=== PATIENT | female | born 1980 | race Hispanic/Latino ===

== ENCOUNTER 2017-05-22 13:24 | Inpatient (IN) | payer OTHER ==
--- NOTE | 2017-05-22 15:22 | Ultrasound Report ---
BIOPHYSICAL PROFILE: INDICATION: well being. COMPARISON: None similar. TECHNIQUE: Transabdominal ultrasound with Doppler interrogation. 2 - breathing movements 2 - movements 2 - posture and tone 0 - Qualitative amniotic fluid volume 6 - TOTAL SCORE OF POSSIBLE 8 Heart Rate (bpm) 161
--- NOTE | 2017-05-22 15:24 | Ultrasound Report ---
OB LIMITED INDICATION: well being. COMPARISON: None similar. TECHNIQUE: Transabdominal grayscale ultrasound with Doppler interrogation. Gestation: Smith Position: Breech Amniotic Fluid: Decreased (< 7 cm) AZUCENA = 2.9 cm Heart Rate: 161 BPM
[2017-05-22] MEDS: LACTATED RINGERS 1,000 ML IV SCH ×2 (16:00→16:50)
[2017-05-22] MEDS ORDERED: REGLAN IV SCH (16:08)
[2017-05-22] MEDS ORDERED: PEPCID IV SCH (16:08)
--- NOTE | 2017-05-22 16:09 | Anesthesia Consultation ---
Anesthesia Consult and Med Hx Date of service: 05/22/17 - Airway Anesthetic Teeth Evaluation: Good ROM Head & Neck: Adequate Mental/Hyoid Distance: Adequate Mallampati Class: Class I Intubation Access Assessment: Good - Pulmonary Exam CTA: Yes - Cardiac Exam Cardiac Exam: RRR - Pre-Operative Health Status ASA Pre-Surgery Classification: ASA2 Proposed Anesthetic Plan: Spinal - Pulmonary Hx Smoking: Yes (1/2 ppd x 15 years) - Cardiovascular System Hx Hypertension: No - Endocrine Hx Renal Disease: No - Additional Comments Anesthesia Medical History Comments: No previous anesthesia complications.
--- NOTE | 2017-05-22 16:09 | Anesthesia Day of Surgery ---
Anesthesia Day of Surgery - Day of Surgery Patient Examined: Yes Patient H&P Reviewed: Yes Patient is NPO: Yes
[2017-05-22 16:31] LABS: Basophils % (Auto) 0.3 % (0.0-1.8); Eosinophils % (Auto) 0.8 % (0.0-4.3); Hematocrit 40.2 % (30.3-42.9); Hemoglobin 13.7 gm/dl (10.1-14.3); Mean Corpuscular HGB Conc 34 % (30-34); Mean Corpuscular Hemoglobin 32 pg (28-32); Mean Corpuscular Volume 93 fl (79-97); Platelet Count 172 K/mm3 (140-440); Red Blood Count 4.32 M/mm3 (3.65-5.03); Red Cell Distribution Width 12.8 % (13.2-15.2)
--- NOTE | 2017-05-22 16:35 | History and Physical Report ---
History of Present Illness Date of examination: 05/22/17 (pt presents from office with nonreassuring tracing and breech) Date of admission: 05/22/17 13:25 History of present illness: EDC Confirmation: 05/15/2017 Gestational Age: 8 1/7 weeks Past History : 5 Term Births: 2 Living Children: 2 Para: 2 Elect. Ab: 1 Spont. Ab: 2 # 1 Delivery date: 1999 Weeks Gestation: 38 Delivery type: vac Anesthesia type: epidural [place] [facility] [place]: Male weight: 7-7 Comments: PPH- no transfusion # 2 Delivery date: 2006 Weeks Gestation: 39 Delivery type: Anesthesia type: epidural [place] [facility] [place] Sex: Female weight: 7-6 Comments: no complications # 3 Delivery date: 2003 Weeks Gestation: 6 Delivery type: SAB Comments: d&c # 4 Delivery date: 2015 Weeks Gestation: 7 Delivery type: SAB Comments: D&C PPH-s/p 3 units of blood Past Medical History: Anxiety Depression Past Surgical History: D&C: x2 Tonsillectomy Past Medical History Surgery (Non-obgyn specialist): D&C: x2 Tonsillectomy Abnormal PAP: positive JORDY Exposure: negative Infertility: negative Uterine Anomaly: negative Uterine Surgery (not C/S): negative Other Gynecologic Problems: negative Medical History Comments: anxiety and depression Family Hx: DM HTN CHF Social Hx: + tobacco: 1/2 ppd no etoh, no drugs single Infection History Hx of STD: HPV Partner hx. of genital herpes: no Rash, Viral, or Febrile illness since last LMP? no Varicella/Chicken Pox Status: Previous Disease Genetic History Congenital Heart Defect: Mom: no Dad: no Angela Disease: Mom: no Dad: no Thalassemia Mom: no Dad: no Neural Tube Defect Mom: no Dad: no Down's Syndrome Mom: no Dad: no Gavin-Sachs Mom: no Dad: no Sickle Cell Disease/Trait Mom: no Dad: no Hemophilia Mom: no Dad: no Muscular Dystrophy Mom: no Dad: no Cystic Fibrosis Mom: no Dad: no Wilfredo Chorea Mom: no Dad: no Mental Retardation Mom: no Dad: no Fragile X Mom: no Dad: no Other Genetic/Chromosomal Disorder Mom: no Dad: no Child w/other defect Mom: no Dad: no Enviromental Exposures Xray Exposure: no Medication, drug, or alcohol use since LMP: no Chemical/Other Exposure: no Exposure to Cat Liter: no Hx of Parvovirus (Fifth Disease): no Occupational Exposure to Children: none Active Medications: PLUS 27-1 MG TABS ( VIT-FE FUMARATE-FA) 1 po PROMETHAZINE HCL 25 MG TABS (PROMETHAZINE HCL) 1 tab po q6hrs prn Current Allergies: No known allergies Laboratory Results Routine Urinalysis Leukocytes: negative Nitrite: negative Urobilinogen: negative Protein: 1+ Blood: 1+ Ketone: moderate (40) Bilirubin: negative Glucose: negative Urine HCG: positive PHYSICAL EXAM HEENT: PERRLA, normal conjunctiva, external nose and nasal mucosa normal, oropharynx clear Neck/Thyroid: supple, thyroid normal Skin no significant abnormal lesions or rashes Chest: respiratory effort normal, clear to auscultation Breasts: normal without skin changes or masses CV: regular, normal S1-S2, no murmur, no rub, no gallop Abdomen: normal bowel sounds, soft, nontender, no HSM Musculoskeletal: grossly normal ROM in joints, no joint tenderness or muscle weakness Neuro: grossly normal DTRs, sensation, strength, cranial nerves Extremities: no clubbing, cyanosis, or 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 Vulva/Vagina: No lesions, normal BUS, normal rugae Cervix: No lesions; no cervical motion tenderness Uterus: normal size and position, midline, mobile Adnexae: no masses or tenderness Rectovaginal: no masses or tenderness Past History - Obstetrical History Expected Date of Delivery: 05/15/17 Actual Gestation: 41 Week(s) 0 Day(s) : 5 Para: 2 Hx # Term Pregnancies: 2 Spontaneous Abortions: 2 Number of Living Children: 2 Medications and Allergies Allergies Allergy/AdvReac Type Severity Reaction Status Date / Time No Known Allergies Allergy Verified 05/22/17 13:53 Home Medications Medication Instructions Recorded Confirmed Last Taken Type Ibuprofen [Motrin 600 MG tab] 800 mg PO Q8H PRN 02/04/14 05/22/17 02/04/14 18: 00 History Cyclobenzaprine [Flexeril 10 MG 10 mg PO TID PRN #15 tablet 06/07/14 05/22/17 Unknown Rx TAB] Phenazopyridine [Pyridium] 200 mg PO Q8HR #6 tablet 08/09/14 07/24/17 Unknown Rx Active Meds: Active Medications Citric Acid/Sodium Citrate (Bicitra) 30 ml PO ONCE ZULEIMA Stop: 05/23/17 16:59 Famotidine (Pepcid) 20 mg IV ONCE ZULEIMA Stop: 05/23/17 16:07 Cefazolin Sodium (Ancef/Sterile Water 2 Gm/20 Ml) 2 gm in 20 mls @ 80 mls/hr IV PREOP NR PRN Reason: Protocol Stop: 05/23/17 16:59 Lactated Ringer's (Lactated Ringers) 1,000 mls @ 2,250 mls/hr IV PREOP ZULEIMA Stop: 05/23/17 17:27 Oxytocin/Sodium Chloride (Pitocin/Ns 20 Unit/1000ml Drip) 20 units in 1,000 mls @ 0 mls/hr IV TITR ZULEIMA PRN Reason: As Directed Metoclopramide HCl (Reglan) 10 mg IV ONCE ZULEIMA Stop: 05/23/17 23:00 - Vital Signs Vital signs: Vital Signs Pulse Pulse Ox 275 H 82 L 05/22/17 13:30 05/22/17 13:30 Temp Pulse Resp BP Pulse Ox 79 118/73 98 05/22/17 16:25 05/22/17 15:08 05/22/17 16:25 - Physical Exam Breasts: Positive: deferred Cardiovascular: Regular rate, Normal S1, Normal S2 Lungs: Positive: Normal air movement Abdomen: Positive: normal appearance, soft, normal bowel sounds. Negative: distention, tenderness Genitourinary (Female): Positive: normal perenium Vulva: both: normal Vagina: Positive: normal moisture. Negative: discharge Cervix: Negative: lesion, discharge Uterus: Positive: normal size, normal contour Adnexa: both: normal Anus/Rectum: Positive: normal perianal skin. Negative: rectal mass, hemorrhoids Extremities: Positive: edema Deep Tendon Reflex Grade: Normal +2 - Obstetrical FHR: category 2 Uterine Contraction Monitor Mode: External Uterine Contraction Pattern: Irregular Uterine Contraction Intensity: Mild Results All other labs normal. Laboratory Data-Patient Name: JAZZ PERRIN Test Date Result Blood Type 11/03/2016 A Rh 11/03/2016 Positive Antibody Screen negative Rubella 11/03/2016 IMMUNE Serology (RPR) 04/14/2017 NR HBsAg 11/03/2016 Negative Hemoglobin 02/06/2017 12.2 Hematocrit 02/06/2017 38.0 Platelets 11/03/2016 212 X10E3/UL Chlamydia DNA 04/14/2017 Negative GC DNA/Culture 04/14/2017 Negative Urine Culture 11/03/2016 Final report Group B Strep cult Negative PAP HIV 04/14/2017 AFP/Quad Screen Glucola Test 3hr GTT (Fasting) 1 hr 2 hr 3 hr OPTIONAL LAB[facility]-Patient Name:JAZZ Osman HADDLE Test Date Result Varicella Ab Sickle Cell 11/03/2016 Negative PPD Fibronectin Cystic Fibrosis Parvovirus TSH Free T4 Hepatitis C ALT AST Uric Acid Creatinine 24 hr Urine Protein RONNIE Assessment and Plan Pt seen in office today for postdates testing Discovered breech presentation. NST in the office nonreassuring. Pt arrived to Triage went to US for evaluation. BPP 6/8, AZUCENA 2, Breech presentation. made aware C/S orders in EMR. Anticipate going to OR @ 1700 - Patient Problems (1) Non-reassuring status Current Visit: Yes Status: Acute (2) Oligohydramnios Current Visit: Yes Status: Acute Qualifiers: Fetus number: F Trimester: T (3) 41 weeks gestation of Current Visit: Yes Status: Acute (4) Breech presentation Current Visit: Yes Status: Acute Qualifiers: Fetus number: F
[2017-05-22] MEDS ORDERED: MORPHINE ONE (16:59)
[2017-05-22] MEDS ORDERED: PITOCin/NS 20 UNIT/1000ML DRIP 20 UNITS/1,000 ML BAG IV SCH ×2 (17:00→19:00)
[2017-05-22] MEDS ORDERED: ANCEF/STERILE WATER 2 GM/20 ML 2 GM/20 ML SYRINGE IV NR (17:00)
[2017-05-22] MEDS ORDERED: BICITRA PO SCH (17:00)
--- NOTE | 2017-05-22 17:10 | Event Note ---
Date: 05/22/17 Indications for section given patient was given opportunity ask questions she had none. Will move to section.
[2017-05-22] MEDS ORDERED: WATER FOR IRRIG STERILE IR ONE (17:23)
[2017-05-22] MEDS ORDERED: NACL 0.9% IR ONE (17:24)
[2017-05-22] MEDS ORDERED: ZOFRAN ONE (17:29)
[2017-05-22] MEDS ORDERED: LACTATED RINGERS 1,000 ML ONE (18:10)
--- NOTE | 2017-05-22 18:12 | Operative Report ---
Operative Report Operative Report: Date of procedure: 05/22/2017 Pre-operative diagnosis: Breech Presentation Post-operative diagnosis: Same Procedure name(s): Primary low transverse section Surgeon: Rex Modi MD Floral Decorator: Anesthesia: Spinal EBL: 600 mL Complications: None Findings: Normal uterus tubes and ovaries, female breech presentation, weight 5 lbs. 9 oz., Apgars 8 at 1 minute 9 at 5 minutes Specimen(s): None Procedure: The patient was brought to the operating room. A spinal was placed without any complications. She was then placed in left lateral tilt. Prepped and draped in the usual sterile manner. After testing for adequate anesthesia level, a Pfannenstiel incision was made. This incision was taken down to the fascia. The fascia was then nicked in the midline. This incision was extended out laterally with Muñoz scissors. The fascia was then sharply and bluntly from the underlying rectus muscles. The rectus muscles were bluntly and sharply . The peritoneum was then entered with the mobile lounge driver or operator's fingers. This incision was spread vertically with care not to damage the bladder below. Brandon retractor was then placed. The bladder flap was then formed sharply and bluntly with Metzenbaum scissors. A transverse incision was made in lower uterine segment. This incision was extended laterally with the operators fingers. The amniotic sac was then entered bluntly with the mobile lounge driver or operator' s fingers. The was delivered by delivered in the breech first flexing and extending the lower extremities followed by raising the breech then sweeping flexing and extending the upper extremities and after coming head was then delivered safely. The infant was bulb suctioned on the mother's abdomen. Cord was double clamped and cut. The infant was then passed to the nursery personnel who were in attendance. The above scores were given by the nursery personnel. The placenta was then bluntly removed. The uterus was then externalized and wiped clean the remaining products. The uterine incision was closed in layers. The first incision was closed in a locking manner using 0 Vicryl. This was followed by imbricating stitch also with 0 Vicryl. This closure was hemostatic. The bladder flap was copiously irrigated and found to be hemostatic. The pelvis was copiously irrigated and found to be hemostatic. The uterus was then placed back to the patient's abdomen. The retractors were removed. The rectus muscles were inspected and found to be hemostatic. The fascia was then closed in a running manner using 0 Vicryl. This incision was hemostatic irrigation Bovie. The skin was reapproximated with 4-0 Vicryl subcuticularly. The patient tolerated procedure well. Her urine was clear. The was admitted to the well baby nursery. The patient was accompanied to recovery room in good condition. Instrument count correct 3.
[2017-05-22] MEDS ORDERED: LANSINOH TP PRN (18:59)
[2017-05-22] MEDS ORDERED: NARCAN 0.4 MG/1 ML IV PRN (18:59)
[2017-05-22] MEDS ORDERED: TUCKS PAD TP PRN (18:59)
[2017-05-22] MEDS ORDERED: SODIUM CHLORIDE FLUSH SYRINGE 10 ML IV SCH (19:00)
[2017-05-22] MEDS ORDERED: D5LR 1,000 ML IV SCH (19:00)
[2017-05-22] MEDS: TORADOL IV PRN (19:14)
[2017-05-22] MEDS ORDERED: NORCO 5/325 PO PRN (21:39)
--- NOTE | 2017-05-22 22:00 | Post Anesthesia Evaluation ---
- Post Anesthesia Evaluation Patient Participated: Yes Airway Patent: Yes Stable Respiratory Function: Yes Nausea/Vomiting: No Temp > 96.8F: Yes Pain Manageable: Yes Adequeate Hydration: Yes Anesthesia Complications: No Block Receding Appropriately: Yes Patient on Ventilator: No
[2017-05-23] MEDS: ANCEF/NS 1 GM/50 ML 1 GM/50 ML BAG IV SCH ×2 (00:29→09:34)
[2017-05-23] MEDS: TORADOL IV PRN (00:29)
[2017-05-23 06:38] LABS: Hematocrit 31.3 % (30.3-42.9)
--- NOTE | 2017-05-23 08:05 | Progress Note ---
Assessment and Plan patient doing well, no complaints. Lochia scant, dressing dry, H&H 11.0/31.3, VSSAF, without concern. advance activity as tolerated. Continue postop pathway. - Patient Problems (1) delivery delivered Current Visit: Yes Status: Acute Subjective - Subjective Date of service: 05/23/17 Principal diagnosis: postop day #1 s/p primary c/s, breech Patient reports: appetite normal, voiding normally, pain well controlled, flatus , ambulating normally, no dizzy ambulation, no nauseated : doing well, nursing well Objective - Vital Signs Latest vital signs: Vital Signs Temp Pulse Pulse Resp BP BP Pulse Ox 05/23/17 04:00 98.6 F 77 18 102/53 05/23/17 00:29 18 05/23/17 00:00 98.6 F 69 16 96/76 05/22/17 20:00 98.6 F 69 16 99/69 05/22/17 19:15 97.9 F 72 14 98/56 95 05/22/17 19:14 15 05/22/17 19:11 62 14 98/54 96 05/22/17 19:05 66 17 103/55 97 05/22/17 19:00 63 12 105/49 98 05/22/17 18:55 82 14 110/61 96 05/22/17 18:50 58 L 14 101/58 96 05/22/17 18:45 73 13 108/59 98 05/22/17 18:40 56 L 11 L 102/57 98 05/22/17 18:35 58 L 15 106/58 97 05/22/17 18:30 62 13 104/61 97 05/22/17 18:25 58 L 12 101/56 99 05/22/17 18:20 63 15 103/54 98 05/22/17 18:16 97.6 F 05/22/17 18:15 59 L 11 L 101/55 98 05/22/17 18:10 99 05/22/17 16:50 98.4 F 20 05/22/17 16:47 70 124/72 05/22/17 16:28 81 97 05/22/17 16:27 81 97 05/22/17 16:25 79 98 05/22/17 16:22 87 92 05/22/17 16:20 66 96 05/22/17 16:15 67 96 05/22/17 16:10 67 98 05/22/17 16:09 208 H 82 L 05/22/17 16:04 60 82 L 05/22/17 16:03 131 H 82 L 05/22/17 16:00 70 95 05/22/17 15:55 76 96 05/22/17 15:50 74 95 05/22/17 15:44 69 97 05/22/17 15:39 73 96 05/22/17 15:34 68 97 05/22/17 15:29 70 97 05/22/17 15:24 91 H 96 05/22/17 15:22 65 96 05/22/17 15:17 75 95 05/22/17 15:12 67 94 05/22/17 15:08 67 118/73 05/22/17 15:07 67 95 05/22/17 15:06 63 92 05/22/17 14:13 75 95 05/22/17 14:08 86 93 05/22/17 14:07 75 93 05/22/17 14:02 102 H 92 05/22/17 14:01 74 93 05/22/17 13:59 90 93 05/22/17 13:57 90 93 05/22/17 13:53 87 93 05/22/17 13:51 87 93 05/22/17 13:50 91 H 93 05/22/17 13:49 82 93 05/22/17 13:47 97 H 93 05/22/17 13:46 105 H 93 05/22/17 13:45 76 93 05/22/17 13:43 77 93 05/22/17 13:42 80 93 05/22/17 13:40 76 93 05/22/17 13:37 74 119/71 05/22/17 13:35 66 97 05/22/17 13:33 278 H 99 05/22/17 13:30 275 H 82 L Intake and Output 05/22/17 05/23/17 05/23/17 22:59 06:59 14:59 Intake Total 3770 790 Output Total 700 570 Balance 3070 220 Intake: IV 3520 50 ANCEF/NS 1 GM/50 ML 1 gm 50 In 50 ml @ 100 mls/hr IV Q8H [facility] Rx#:[id number] ANCEF/STERILE WATER 2 GM/ 20 20 ML 2 gm In 20 ml @ 80 mls/hr IV PREOP NR Rx#: [id number] Lactated Ringers 1,000 ml 1000 @ 2250 mls/hr IV PREOP ZULEIMA Rx#:[id number] Oral 240 Intake, Free Water 250 500 Output: Urine 700 570 Indwelling Catheter 200 Uretheral (Palacios) 150 570 Other: Total, Intake Amount 240 Total, Output Amount 200 # Voids Void 1 Weight 67.132 kg Estimated Blood Loss 600 - Exam Breasts: Present: normal, Cardiovascular: Present: Regular rate Lungs: Present: Clear to auscultation, Normal air movement Abdomen: Present: normal appearance, soft Uterus: Present: normal, firm, fundal height at umbilicus Extremities: Present: edema (BLE) Deep Tendon Reflex Grade: Normal +2 Incision: Present: normal, dry, dressed - Labs Labs: Abnormal lab results 05/22/17 Range/Units 16:20 WBC 13.0 H (4.5-11.0) K/mm3 RDW 12.8 L (13.2-15.2) % Seg Neutrophils % 77.3 H (40.0-70.0) % Seg Neutrophils # 10.0 H (1.8-7.7) K/mm3
[2017-05-23] MEDS: PRENATAL VITAMIN PO SCH (09:15)
[2017-05-23] MEDS ORDERED: PERCOCET 5/325 PO PRN (16:07)
[2017-05-23] MEDS: PERCOCET 5/325 PO PRN ×2 (16:22→20:04)
[2017-05-23] MEDS: MOTRIN PO PRN (16:23)
[2017-05-24] MEDS: MOTRIN PO PRN ×2 (00:42→09:16)
[2017-05-24] MEDS: PERCOCET 5/325 PO PRN ×3 (00:45→12:04)
[2017-05-24] MEDS ORDERED: BOOSTRIX IM ONE (06:00)
--- NOTE | 2017-05-24 06:34 | Discharge Summary ---
Providers - Providers Date of Admission: 05/22/17 13:25 Date of discharge: 05/24/17 (pt req d/c ) Attending physician: RANULFO DEL TORO 05/22/17 18:59 Consult to Emission Technician [CONS] Routine Reason For Exam: Primary care physician: RANULFO DEL TORO Hospitalization Reason for admission: section Delivery: Procedure: primary low transverse Episiotomy: none Laceration: none Incision: normal, dry, intact Other procedures: none complications: none Discharge diagnosis: IUP at term delivered [place] baby: female Hospital course: uncomplicated primary section BREECH Pt w/o complaint VSS FF below umb Lochia scant Incision dry and intact H&H111/29 No s/sx of anemia. Doing well s/p section. P: d/c today with instructions RX provided. RTO 1 week Condition at discharge: Good Disposition: DC-01 TO HOME OR SELFCARE - Discharge Diagnoses (1) delivery delivered Status: Acute Comment: rto 1 week Plan - Discharge Medications Prescriptions: Ferrous Sulfate [Feosol 325 MG tab] 325 mg PO BID #60 tablet Ibuprofen [Motrin 800 MG tab] 800 mg PO Q6H PRN #30 tablet PRN Reason: Pain oxyCODONE /ACETAMINOPHEN [Percocet 5/325 mg] 1 - 2 tab PO Q4H PRN #30 tablet PRN Reason: Pain, Moderate - Provider Discharge Summary Activity: routine, no sex for 6 weeks, no heavy lifting 4 weeks, no strenuous exercise Diet: routine Instructions: routine Additional instructions: [] Smoking cessation referral if applicable(refer to patient education folder for contact #) [] Refer to [facility] Booklet Call your doctor immediately for: * Fever > 100.5 * Heavy vaginal bleeding ( >1 pad per hour) * Severe persistent headache * Shortness of breath * Reddened, hot, painful area to leg or breast * Drainage or odor from incision. * Keep incision clean and dry at all times and follow doctor's instructions regarding bathing/showering - Follow up plan Follow up: RANULFO DEL TORO MD [Primary Care Provider] - 7 Days (Congratulations! Please call [phone] to schedule your exam in 1 week. Take medications as prescribed. Call with concerns.)
[2017-05-24] MEDS: PRENATAL VITAMIN PO SCH (09:16)
[2017-05-24 13:39] VITALS: BP 135/77
== END 2017-05-24 13:15 | disposition home or self-care (01) | DRG 765 ==
LOC: TRG 13:24 → APU 13:25 → TRG 13:25 → OB 19:51
PROVIDERS: ADMIT Obstetrics & Gynecology; ATTEND Obstetrics & Gynecology
PROC: 10D00Z1 Extraction of Products of Conception, Low, Open Approach (ICD-10-PCS; principal; 2017-05-22)
PROC: 3E0234Z Introduction of Serum, Toxoid and Vaccine into Muscle, Percutaneous Approach (ICD-10-PCS; 2017-05-24)
DX: O32.1XX0 Maternal care for breech presentation, not applicable or unspecified (principal); O41.03X0 Oligohydramnios, third trimester, not applicable or unspecified; O76 Abnormality in fetal heart rate and rhythm complicating labor and delivery; O99.344 Other mental disorders complicating childbirth; O48.0 Post-term pregnancy; F32.9 Major depressive disorder, single episode, unspecified; F41.9 Anxiety disorder, unspecified; Z37.0 Single live birth; Z3A.41 41 weeks gestation of pregnancy; Z23 Encounter for immunization
CPT/HCPCS: 36415; 59025; 76815; 76819; 85014; 85018; 85025; 86850; 86900; 86901; 90471; 96360; 96374; 99211; G0463; J0690; J1885; J2270; J2405; J2590; J2765; J7120